=== PATIENT | male | born 1995 | race Caucasian/White ===

== ENCOUNTER 2018-01-31 23:03 | Emergency (ER) | payer OTHER ==
[~2018-01-31] VITALS: Ht 188 cm; Wt 79.4 kg
[2018-01-31 23:18] VITALS: BP 99/47
[2018-02-01 00:32] VITALS: BP_SYST 100; BP_SYST 102; BP_DIAS 45; BP_DIAS 62
[2018-02-01 00:45] VITALS: BP 102/62
--- NOTE | 2018-02-01 04:58 | Emergency Room Report ---
History of Present Illness General Chief Complaint: Syncope Source: EMS Present Illness HPI Patient is a 22-year-old male brought in by EMS after a witnessed syncopal episode. Patient had been reportedly eating edible marijuana and subsequently began having vomiting as well as lightheadedness. The patient vomited one time and had a witnessed syncopal episode. This was witnessed by EMS. The patient was started on IV fluids. He was noted to have a prior syncopal episodes. He denies any symptoms at this time. Patient stated that he felt better after lying down. Allergies: Coded Allergies: No Known Allergies (Unverified , 01/31/18) Patient History Past Medical History: see triage record Reviewed Nursing Documentation: PMH: Agreed; PSxH: Agreed Nursing Documentation-PMH Past Medical History: No Stated History Review of Systems All Other Systems: negative except mentioned in HPI Physical Exam Vital Signs Date Time Temp Pulse Resp B/P (MAP) Pulse Ox O2 Delivery O2 Flow Rate FiO2 01/31/18 23:07 97.9 61 16 99/47 100 Room Air 97.9 General Appearance: well appearing, no apparent distress, alert, GCS 15, non- toxic Head: normocephalic, atraumatic ENT: hearing grossly normal, normal voice Neck: full range of motion, supple Respiratory: lungs clear, normal breath sounds, no respiratory distress, speaking full sentences Cardiovascular #1: normal inspection, regular rate, rhythm Musculoskeletal: normal inspection, no calf tenderness Neurologic: normal gait Psychiatric: mood/affect normal Skin: no rash Medical Decision Making Diagnostic Impression: Primary Impression: Syncope Additional Impression: Dehydration ER Course Patient presented for syncope. Differential diagnosis included but was not limited to arrhythmia, orthostatic hypotension, hypovolemia, vasovagal, anemia among others. Patient has a benign exam and does not appear to require any further imaging or laboratory testing at this time. The patient given IV fluids with improvement of symptoms. Patient said he felt better want to go home. Patient's episode appears to be the related recent edible marijuana ingestion. The time of discharge patient was awake alert and a ambulatory without assistance. The patient is advised follow-up with his doctor for further workup as needed. EKG Diagnostic Results Rate: normal Rhythm: NSR ST Segments: no acute changes Last Vital Signs Date Time Temp Pulse Resp B/P (MAP) Pulse Ox O2 Delivery O2 Flow Rate FiO2 02/01/18 00:45 97.9 71 16 102/62 99 Room Air 97.9 Status: improved Disposition: HOME, SELF-CARE Condition: Stable Referrals: NOT CHOSEN IPA/MD,REFERRING (PCP) Departure Forms: Return to Work Return to Work in (Days): 1 Patient Instructions: Syncope Maurilio Doyle MD Feb 01, 2018 04:58
--- NOTE | 2018-02-04 16:02 | Cardiology Report ---
APPROVED REPORT EKG Measurement Heart [id number] MD [id number] Unusual P axis, possible ectopic atrial rhythm Incomplete right bundle branch block Lateral infarct, age undetermined Abnormal ECG
== END 2018-02-01 00:45 | disposition home or self-care (01) ==
LOC: EDBD 23:03 → EMR 23:26
DX: R55 Syncope and collapse (principal); E86.0 Dehydration
CPT/HCPCS: 93005; 96360; 99284